=== PATIENT | female | born 1980 | race Caucasian/White ===

== ENCOUNTER → 2018-07-30 | Outpatient (CLI) | payer OTHER ==
[2018-07-30 09:01] LABS: ABSOLUTE BASOPHILS 0.1 thou/uL (0.0-0.2); ABSOLUTE EOSINOPHILS 0.1 thou/uL (0.0-0.7); ABSOLUTE LYMPHOCYTES 1.9 thou/uL (0.8-5.3); ABSOLUTE MONOCYTES 0.4 thou/uL (0.0-1.2); ABSOLUTE NEUTROPHILS 4.8 thou/uL (1.6-8.1); BASOPHILS 0.9 %; EOSINOPHILS 1.1 %; HEMOGLOBIN 13.7 gm/dL (12.0-15.0); LYMPHOCYTES 26.4 %; MCH 28.7 pg (26.0-34.0); MCHC 33.5 g/dL (28.0-37.0); MCV 85.6 fL (80.0-100.0); MONOCYTES 6.1 %; MPV 9.4 fl. (7.2-11.1); NUCLEATED RBCS 0 /100WBC; PLATELET COUNT* 289 thou/uL (150-400); POLYS 65.5 %; RBC 4.79 mil/uL (4.20-5.00); RDW-CV 13.4 % (10.5-14.5); WBC 7.4 thou/uL (4.0-11.0)
[2018-07-30 09:14] LABS: CHOLESTEROL 189 mg/dL (<200); HDL CHOLESTEROL 77 mg/dL (>40); LDL CHOLESTEROL 96 mg/dL (<100); TC:HDL 2.5 Ratio (Not establshd); TRIGLYCERIDE 82 mg/dL (<150); VLDL 16 mg/dL (<40)
[2018-07-30 09:15] LABS: ALBUMIN 3.6 g/dL (3.4-5.0); CALCIUM 8.6 mg/dL (8.5-10.1); CREATININE 0.8 mg/dL (0.6-1.3); POTASSIUM 3.9 mmol/L (3.5-5.1); TOTAL BILIRUBIN 0.4 mg/dL (<0.1-1.0); TOTAL PROTEIN 7.4 g/dL (6.4-8.2)
[2018-07-30 09:16] LABS: SERUM ASSESSMENT Clear
[2018-07-30 17:06] LABS: GLYCOHEMOGLOBIN (HGB A1C) 5.2 % (4.8-5.6)
== END ==
LOC: M.LAB 08:01
PROVIDERS: Nurse Practitioner
DX: Z13.220 Encounter for screening for lipoid disorders (principal); Z13.29 Encounter for screening for other suspected endocrine disorder; R22.1 Localized swelling, mass and lump, neck; F41.9 Anxiety disorder, unspecified; L71.9 Rosacea, unspecified; Z82.49 Family history of ischemic heart disease and other diseases of the circulatory system; Z83.3 Family history of diabetes mellitus; Z98.890 Other specified postprocedural states; Z87.898 Personal history of other specified conditions; Z86.018 Personal history of other benign neoplasm